=== PATIENT | male | born 1950 | race Caucasian/White ===

== ENCOUNTER 2021-12-09 18:45 | Emergency (ER) | payer MEDICARE, OTHER ==
[2021-12-09] MEDS ORDERED: Sodium Chloride 0.9% 10 ML Syringe FLUSH PRN (18:53)
[2021-12-09] MEDS ORDERED: Iopamidol 612 MG/ML 100 ML Bottle IV PRN (19:39)
[2021-12-09 19:43] LABS: TROPONIN I HIGH SENSITIVITY 12.9 pg/mL (<=60.3)
[2021-12-09] MEDS ORDERED: Sodium Chloride 0.9% 100 ML IV SCH (19:45)
[2021-12-09] MEDS ORDERED: Lactated Ringers 1,000 ML IV SCH (20:15)
[2021-12-09] MEDS ORDERED: Pantoprazole 40 MG Tab.CR PO STA (21:08)
[2021-12-09] MEDS ORDERED: Ondansetron 4 MG Tab.DIS PO ONE (21:08)
== END 2021-12-09 22:55 | disposition home or self-care (01) ==
LOC: JP.ED 18:45
DX: S22.31XA Fracture of one rib, right side, initial encounter for closed fracture (principal); S20.211A Contusion of right front wall of thorax, initial encounter; K52.9 Noninfective gastroenteritis and colitis, unspecified; R11.14 Bilious vomiting; Z79.899 Other long term (current) drug therapy; Z79.01 Long term (current) use of anticoagulants; Z20.822 Contact with and (suspected) exposure to COVID-19; Z88.8 Allergy status to other drugs, medicaments and biological substances; Z88.2 Allergy status to sulfonamides; Z88.6 Allergy status to analgesic agent; W18.40XA Slipping, tripping and stumbling without falling, unspecified, initial encounter
CPT/HCPCS: 36415; 71260; 74177; 80053; 83605; 83690; 84484; 85025; 85610; 85730; 86140; 93005; 93010; 99283; 99284-25; A9270-GY; J3490; J7120; Q0162; Q9967; U0002

== ENCOUNTER 2023-03-26 14:26 | Emergency (ER) | payer MEDICARE, OTHER ==
[2023-03-26 17:01] LABS: BASOPHILS ABSOLUTE AUTO 0.16 K/uL (0.00-0.10); BASOPHILS PERCENT AUTO 1.4 % (0.1-1.3); EOSINOPHILS ABSOLUTE AUTO 0.17 K/uL (0.00-0.40); EOSINOPHILS PERCENT AUTO 1.4 % (0.0-5.4); HEMATOCRIT 42.5 % (38.4-49.7); HEMOGLOBIN 15.1 g/dL (12.9-16.9); IMMATURE GRAN ABSOLUTE AUTO 0.04 K/uL (0.00-0.23); IMMATURE GRAN PERCENT AUTO 0.3 % (0.0-0.7); LYMPHOCYTES ABSOLUTE AUTO 3.04 K/uL (0.8-3.3); LYMPHOCYTES PERCENT AUTO 25.7 % (11.4-47.7); MEAN CORPUSCULAR HEMOGLOBIN 28.3 pg (31.6-35.5); MEAN CORPUSCULAR HGB CONC 35.5 g/dL (31.6-35.5); MEAN CORPUSCULAR VOLUME 79.6 fL (81.4-99.0); MONOCYTES PERCENT AUTO 9.3 % (3.3-12.6); NEUTROPHILS ABSOLUTE AUTO 7.33 K/uL (1.0-7.6); NEUTROPHILS PERCENT AUTO 61.9 % (40.0-78.1); PLATELET COUNT,PLT 303 K/uL (130-375); RED BLOOD CELL COUNT 5.34 M/uL (4.14-5.76); WHITE BLOOD CELL COUNT,WBC 11.8 K/uL (3.2-11.0)
[2023-03-26 17:25] LABS: CALCIUM 9.5 mg/dL (8.5-10.1); CREATININE 1.7 mg/dL (0.8-1.3); EST CRCL DRUG DOSING (CG) 45.69 mL/min; TROPONIN I HIGH SENSITIVITY 11.8 pg/mL (<=60.3)
[2023-03-26 17:29] LABS: ANION GAP 13.4 mmol/L (5.0-14.0); POTASSIUM,K 2.4 mmol/L (3.6-5.2)
[2023-03-26] MEDS ORDERED: Potassium Chloride 20 MEQ Tab.ER PO ONE (17:45)
[2023-03-26] MEDS ORDERED: Potassium Chloride 20 MEQ in Premix Bag 1 BAG IV ONE (18:07)
[2023-03-26] MEDS ORDERED: Lactated Ringers 1,000 ML IV ONE (18:46)
== END 2023-03-26 21:58 | disposition home or self-care (01) ==
LOC: JP.ED 14:26
DX: E87.6 Hypokalemia (principal); J44.9 Chronic obstructive pulmonary disease, unspecified; K21.9 Gastro-esophageal reflux disease without esophagitis; E66.9 Obesity, unspecified; Z68.41 Body mass index [BMI] 40.0-44.9, adult; Z88.5 Allergy status to narcotic agent; Z88.2 Allergy status to sulfonamides; Z88.8 Allergy status to other drugs, medicaments and biological substances; Z79.01 Long term (current) use of anticoagulants; Z79.899 Other long term (current) drug therapy
CPT/HCPCS: 36415; 71046; 80048; 84484; 85025; 86140; 93005; 96365; 96366; 99284; A9270; J3480; J7120

== ENCOUNTER 2023-04-04 21:18 | Emergency (ER) | payer MEDICARE, OTHER ==
[2023-04-04] MEDS ORDERED: Potassium Chloride 20 MEQ Tab.ER PO ONE (22:26)
[2023-04-04] MEDS ORDERED: Lactated Ringers 1,000 ML IV ONE (22:26)
[2023-04-04] MEDS ORDERED: Potassium Chloride 20 MEQ in Premix Bag 1 BAG IV ONE (22:26)
== END 2023-04-05 00:55 | disposition home or self-care (01) ==
LOC: JP.ED 21:18
DX: E87.6 Hypokalemia (principal); I48.91 Unspecified atrial fibrillation; I10 Essential (primary) hypertension; J44.9 Chronic obstructive pulmonary disease, unspecified; K21.9 Gastro-esophageal reflux disease without esophagitis; E66.9 Obesity, unspecified; Z79.01 Long term (current) use of anticoagulants; Z79.899 Other long term (current) drug therapy; Z88.2 Allergy status to sulfonamides; Z88.5 Allergy status to narcotic agent; Z88.8 Allergy status to other drugs, medicaments and biological substances; Z86.16 Personal history of COVID-19; Z68.41 Body mass index [BMI] 40.0-44.9, adult
CPT/HCPCS: 36415; 84132; 96365; 96366; 99284; A9270; J3480; J7120

== ENCOUNTER 2024-01-28 23:20 | Emergency (ER) | payer MEDICARE, OTHER ==
[2024-01-29] MEDS: Lidocaine 1% with EPINEPHrine 1:100,000 20 ML MDV INJECT ONE (01:23)
[2024-01-29] MEDS: Bacitracin Oint 1 GM U/D Packet TOP ONE (01:23)
== END 2024-01-29 01:29 | disposition home or self-care (01) ==
LOC: JP.ED 23:20
DX: S61.012A Laceration without foreign body of left thumb without damage to nail, initial encounter (principal); K21.9 Gastro-esophageal reflux disease without esophagitis; J44.9 Chronic obstructive pulmonary disease, unspecified; E66.9 Obesity, unspecified; Z68.42 Body mass index [BMI] 45.0-49.9, adult; Z88.2 Allergy status to sulfonamides; Z88.5 Allergy status to narcotic agent; Z88.8 Allergy status to other drugs, medicaments and biological substances; Z79.899 Other long term (current) drug therapy; Z86.16 Personal history of COVID-19; Z79.01 Long term (current) use of anticoagulants; W26.8XXA Contact with other sharp object(s), not elsewhere classified, initial encounter
CPT/HCPCS: 12002; 99282

== ENCOUNTER 2024-02-11 06:18 | Day surgery (SDC) | payer MEDICARE, OTHER ==
[2024-02-11] MEDS ORDERED: Propofol 200 MG/20 ML SDV ONE ×2 (06:59)
[2024-02-11] MEDS ORDERED: fentaNYL 50 MCG/ML SDV ONE (06:59)
[2024-02-11] MEDS: Sodium Chloride 0.9% 1,000 ML IV SCH (07:40)
== END 2024-02-11 09:30 | disposition home or self-care (01) ==
LOC: JP.SDS 06:18
PROVIDERS: ATTEND Surgery
DX: Z12.11 Encounter for screening for malignant neoplasm of colon (principal); D12.0 Benign neoplasm of cecum; D12.2 Benign neoplasm of ascending colon; D12.3 Benign neoplasm of transverse colon; K21.00 Gastro-esophageal reflux disease with esophagitis, without bleeding; K22.89 Other specified disease of esophagus; K57.30 Diverticulosis of large intestine without perforation or abscess without bleeding
CPT/HCPCS: 00813; 43239; 45380; 45385; 88305; J2704; J3010; J7030

== ENCOUNTER 2025-03-23 14:27 | Emergency (ER) | payer MEDICARE, OTHER ==
[2025-03-23 16:53] LABS: BASOPHILS ABSOLUTE AUTO 0.09 K/uL (0.00-0.10); BASOPHILS PERCENT AUTO 1.0 % (0.1-1.3); EOSINOPHILS ABSOLUTE AUTO 0.21 K/uL (0.00-0.40); EOSINOPHILS PERCENT AUTO 2.3 % (0.0-5.4); IMMATURE GRAN PERCENT AUTO 0.2 % (0.0-0.7); LYMPHOCYTES ABSOLUTE AUTO 2.36 K/uL (0.8-3.3); LYMPHOCYTES PERCENT AUTO 25.7 % (11.4-47.7); MONOCYTES ABSOLUTE AUTO 0.87 K/uL (0.20-0.90); MONOCYTES PERCENT AUTO 9.5 % (3.3-12.6); NEUTROPHILS ABSOLUTE AUTO 5.62 K/uL (1.0-7.6); NEUTROPHILS PERCENT AUTO 61.3 % (40.0-78.1); PLATELET COUNT,PLT 273 K/uL (130-375); RED BLOOD CELL COUNT 4.57 M/uL (4.14-5.76); WHITE BLOOD CELL COUNT,WBC 9.2 K/uL (3.2-11.0)
[2025-03-23 16:56] LABS: IMMATURE GRAN ABSOLUTE AUTO 0.02 K/uL (0.00-0.23)
[2025-03-23 17:16] LABS: A/G RATIO 1.1 (1.2-2.2); ALANINE AMINOTRANSFERASE,ALT 28 U/L (12-78); ASPARTATE AMNIOTRANSFERASE,AST 21 U/L (15-37); BILIRUBIN TOTAL 0.8 mg/dL (0.2-1.0); BLOOD UREA NITROGEN,BUN 22 mg/dL (7-18); CARBON DIOXIDE,CO2 30 mmol/L (21-32); CHLORIDE,CL 96 mmol/L (100-108); CREATININE 1.4 mg/dL (0.8-1.3); EST CRCL DRUG DOSING (CG) 53.90 mL/min; ESTIMATED GFR 53 mL/min (>60); GLUCOSE RANDOM 78 mg/dL (74-106); POTASSIUM,K 3.5 mmol/L (3.6-5.2); PROTEIN TOTAL,TP 7.0 g/dL (6.4-8.2); SODIUM,NA 129 mmol/L (140-148)
[2025-03-23 17:24] LABS: APPEARANCE,URINE SLIGHTLY CLOUDY (CLEAR); GLUCOSE,URINE NEGATIVE (NEGATIVE); OCCULT BLOOD,URINE NEGATIVE (NEGATIVE)
[2025-03-23 17:44] LABS: SQUAMOUS EPITHELIAL CELLS,UR FEW /HPF; UROTHELIAL CELLS,URINE NOT SEEN /HPF
== END 2025-03-23 18:45 | disposition home or self-care (01) ==
LOC: JP.ED 14:27
DX: E87.1 Hypo-osmolality and hyponatremia (principal); T50.905A Adverse effect of unspecified drugs, medicaments and biological substances, initial encounter; I48.91 Unspecified atrial fibrillation; I10 Essential (primary) hypertension; J44.9 Chronic obstructive pulmonary disease, unspecified; Z88.5 Allergy status to narcotic agent; Z88.2 Allergy status to sulfonamides; Z88.8 Allergy status to other drugs, medicaments and biological substances; Z79.51 Long term (current) use of inhaled steroids; Z79.899 Other long term (current) drug therapy; Z79.01 Long term (current) use of anticoagulants
CPT/HCPCS: 36415; 71046; 71046-26; 80053; 81001; 85025; 93005; 99285